=== PATIENT | female | born 1995 | race Caucasian/White ===

== ENCOUNTER 2019-03-28 14:50 | Outpatient (CLI) | payer OTHER ==
[2019-03-28 15:11] VITALS: BP 124/81
[2019-03-28] MEDS ORDERED: ACETAMINOPHEN 500 MG TABLET PO SCH (15:30)
[2019-03-28] MEDS ORDERED: diphenhydrAMINE 25 MG CAPSULE PO SCH (16:00)
[2019-03-28] MEDS ORDERED: PROMETHAZINE 25 MG TABLET PO SCH (16:00)
--- NOTE | 2019-03-28 17:07 | PROVIDER PROGRESS NOTE ---
- HPI Chief Complaint: Headache (23 yo at 38+0 wga presents for headache. Started approximately 2h prior to presentation. Associated with mild lightheadedness but no visual change. Has not tried any medications for h/a. Some nausea, no emesis. No unusual food intake, feels she is staying hydrated. Denies CP/SOB, RUQ/epigastric pain. Denies ctx, VB, LOF. Reports FM. No other acute concerns. Pt was rec'g care at [facility]; with inpatient closure requested referral to [facility], but last week changed mind and requested referral to [facility]. Has not yet had intake appt in their clinic.) Current : Current EDU 04/11/19 Gestation 38 Weeks and 0 Days 3 Para 1 Vital Signs Temperature 97.5 F L 03/28/19 15:08 Heart Rate 93 03/28/19 15:08 Respiratory Rate 16 03/28/19 15:08 Blood Pressure 124/81 H 03/28/19 15:08 Temperature 97.5 F L 03/28/19 15:08 Heart Rate 93 03/28/19 15:08 Respiratory Rate 16 03/28/19 15:08 Blood Pressure 124/81 H 03/28/19 15:08 O2 Saturation - Exam VS wnl Gen: alert, NAD CV: S1 and S2 wnl, no EHS Resp: AE clear to bases BL Neuro: CN II-XII symmetric and intact Abdo: soft, nontender Uterus: gravid, nontender - Procedures OB Procedure Performed: NST Diagnosis/Indication for NST: Other (headache) NST Procedure: NST Procedure Start Date 03/28/19 Start Time 15:05 Stop Time 15:37 Vibroacoustic Stimulation Used No Patient States Movement Yes Service Date of procedure: 03/28/19 Procedure Details: 130, mod variability, pos accels, no decels. Irregular ctx, pt not feeling. - Plan Plan: 23 yo at 38+0 wga presents to [facility] triage for h/a. VS wnl, exam benign. wellbeing demonstrated with reactive NST. Mild improvement in h/a with tylenol, then relief of headache with benadryl and phenergan. Discussed signs/symptoms of labor or pre-clampsia, reasons to return. Also discussed importance of establishing care with [facility]; will confirm records received by their clinic on Saturday so that pt can make appt there. Pt expressed understanding.
== END 2019-03-28 17:26 | disposition home or self-care (01) ==
LOC: WFO 14:50 → FBP 14:54 → WFO 17:26
PROVIDERS: ATTEND Obstetrics & Gynecology
DX: O26.893 Other specified pregnancy related conditions, third trimester (principal); R51 Headache; R42 Dizziness and giddiness; Z3A.38 38 weeks gestation of pregnancy
CPT/HCPCS: 59025; 99213; A9270; Q0169

== ENCOUNTER 2019-04-13 21:45 | Inpatient (IN) | payer OTHER ==
[2019-04-13] MEDS ORDERED: SODIUM CHLORIDE FLUSH 0.9% 10 ML SYRINGE ONE ×2 (22:09→23:06)
[2019-04-13] MEDS ORDERED: OXYTOCIN/DEXTROSE 5 % 30 UNIT/500 ML BAG IV ONE ×2 (22:09→23:00)
[2019-04-13] MEDS ORDERED: LACTATED RINGERS 1,000 ML IV ONE (22:09)
[2019-04-13] MEDS ORDERED: SODIUM CHLORIDE FLUSH 0.9% 10 ML SYRINGE IVP PRN (22:10)
[2019-04-13 22:33] LABS: BASOPHILS # (AUTO) 0.1 10^3/uL (0.0-0.1); BASOPHILS % (AUTO) 0.6 %; EOSINOPHILS # (AUTO) 0.1 10^3/uL (0.0-0.7); EOSINOPHILS % (AUTO) 0.7 %; HGB - HEMOGLOBIN 10.1 g/dL (12.0-16.0); LYMPHOCYTES # (AUTO) 2.9 10^3/uL (1.5-3.5); LYMPHOCYTES % (AUTO) 33.4 %; MEAN CORPUSCULAR HEMOGLOBIN 24.1 pg (27.0-31.0); MEAN CORPUSCULAR HGB CONC 31.4 g/dL (32.0-36.0); MEAN CORPUSCULAR VOLUME 76.8 fL (81.0-99.0); MEAN PLATELET VOLUME 10.8 fL (7.9-10.8); MONOCYTES # (AUTO) 0.7 10^3/uL (0.0-1.0); MONOCYTES % (AUTO) 7.8 %; NEUTROPHILS % (AUTO) 57.2 %; PLT - PLATELET COUNT 297 10^3/uL (130-450); RED BLOOD COUNT 4.19 10^6/uL (4.20-5.40); RED CELL DISTRIBUTION WIDTH 17.1 % (12.0-15.0); WHITE BLOOD COUNT 8.7 x10^3/uL (4.8-10.8)
[2019-04-13] MEDS ORDERED: LACTATED RINGERS 1,000 ML IV SCH (23:00)
--- NOTE | 2019-04-13 23:53 | PROVIDER PROGRESS NOTE ---
Labor Progress Note - Uterine Monitoring Contraction Frequency (min/apart): 2 Contraction Intensity: positive: Strong Uterine Resting Tone: positive: Soft - Monitoring Monitor Mode: positive: External ultrasound Heart Rate Variability: positive: Moderate (6-25 bmp) Decelerations: positive: Early, Intermittent (<50% x20 min) Strip Review: positive: Category I - Vaginal Exam Dilation (in cm): 8 Effacement (%): 100 Station: 0 Cervical Position: Anterior - Labor Progress Note Labor Progress Note/Additional Text: AROM clear fluid. Using Nitrous for pain control. Progressing feeling more pelvic pressure.
[2019-04-14] MEDS ORDERED: LIDOCAINE-MPF 1% 30 ML VIAL ONE ×2 (00:17→05:12)
[2019-04-14] MEDS ORDERED: OXYTOCIN/DEXTROSE 5 % 30 UNIT/500 ML BAG IV PRN (00:23)
[2019-04-14] MEDS ORDERED: ACETAMINOPHEN 325 MG TABLET PO PRN (00:48)
[2019-04-14] MEDS ORDERED: diphenhydrAMINE 25 MG CAPSULE PO PRN (00:48)
[2019-04-14] MEDS ORDERED: HYDROCORTISONE 1% CREAM 28 GM TUBE PR PRN (00:48)
[2019-04-14] MEDS ORDERED: WITCH HAZEL/GLYCERIN 1 PAD TOP PRN (00:48)
[2019-04-14] MEDS ORDERED: ONDANSETRON 4 MG/2 ML VIAL IVP PRN (00:48)
--- NOTE | 2019-04-14 00:55 | DELIVERY NOTE ---
Delivery Note - Labor Labor: positive: Spontaneous - Delivery Method Delivery Method: positive: Spontaneous vaginal delivery - Presentation Presentation: positive: Vertex, ALEXANDR - left occiput anterior, Other (compound right hand) - Nuchal Cord Nuchal Cord: positive: Present (times 1) - Anesthetic Anesthetic Type: Anesthetic: positive: Lidocaine - 1% plain Volume: positive: Other (30) - Episiotomy Type Episiotomy Type: positive: None - Laceration Laceration: positive: 2nd degree - Suture Suture Type: positive: Vicryl Suture Size: positive: 3-0 - Delivery Outcome Delivery Outcome: positive: Livebirth - Rand: positive: Placed in direct skin contact with mother, Bulb syringe, St imulated, Warmed, [place] used sex: positive: Male - Cord Cord: positive: 3 vessels - Placenta Placenta: positive: Intact - Estimated Blood Loss Estimated Blood Loss (in cc): 250 - Post Delivery Events Post Delivery Events: positive: No post delivery events - Delivery Comments (Free Text/Narrative) Delivery Comments (Free Text/Narrative): Pt had onset of spontaneous labor. Presented at 8 cm. Pt last delivery had problems with the epidural and needed a blood patch. for this reason she declined an epidural and requested Nitrous. SROM with clear fluid at 2342. re ached complete at 0000.Excellent pushing and Delivered at 0015. ALEXANDR with compound Hand and nucal cord X 1. Placenta followed complete at 0023. Second degree laceration closed with 3-0 vicril and lidocane. Apgars 8/9. EBL 250.
[2019-04-14] MEDS ORDERED: LACTATED RINGERS 1,000 ML IV SCH (01:00)
[2019-04-14] MEDS ORDERED: SODIUM CHLORIDE FLUSH 0.9% 10 ML SYRINGE IVP SCH (01:00)
[2019-04-14] MEDS: IBUPROFEN 800 MG TABLET PO SCH ×2 (02:25→07:57)
[2019-04-14] MEDS ORDERED: BUFFERED LIDOCAINE 10 ML SYRINGE IU ONE (02:40)
[2019-04-14] MEDS: ACETAMINOPHEN 325 MG TABLET PO PRN ×5 (02:45→21:35)
--- NOTE | 2019-04-14 02:53 | PREOP HISTORY & PHYSICAL ---
DATE OF SERVICE: 04/13/2019 Physician: Haile Padilla MD IDENTIFICATION: The patient is a 23-year-old. She is a G3, P1, AB1 female. Her EDC is 04/11/2019, that is by LMP confirmed with ultrasound at 11 as well as again at 28 weeks. She is currently 40 we eks 3 days. CHIEF COMPLAINT: Strong contractions. HISTORY OF PRESENT ILLNESS: The patient developed strong contractions this evening. She denies spon taneous rupture of membranes. She has started her OB care at the [facility] roughly at 8 weeks, a ll the way to 37 weeks, at which time she was transferred to our clinic. She was first seen at 38-6/ 7 weeks. Her laboratories show her to be A positive, she is rubella immune. Her serology, hepatitis B, chlamydia and GC as well as HIV were all negative. She has had a GBS, which is noted to be negat mildred. Her 50 gram Glucola was 118. PAST MEDICAL HABITS: The patient denies any hypertensive, diabetic or cardiac disease. PAST SURGICAL HISTORY: Negative. ALLERGIES: NONE KNOWN. CURRENT MEDICATIONS: Vitamins as well as Zantac for heartburn. HABITS: The patient denies use of alcohol, tobacco or street or addictive drugs. SOCIAL HISTORY: The patient is to her , who is active duty [place]. She lives with her spouse and child. REVIEW OF SYSTEMS: Negative with the exception of heartburn. PHYSICAL EXAMINATION GENERAL: The patient is a well-developed, well-nourished white female. She is in no acute distress at this time. VITAL SIGNS: Stable. HEENT: Pupils are equal, round. Extraocular muscles are intact. Mouth is clear. Thyroid is not pa lpably enlarged. HEART: Regular rate and rhythm without murmurs. LUNGS: Lung schaefer are clear without rales or wheezes. ABDOMEN: Gravid. She is showing regular contractions on the monitor, about every 2 minutes. Baseli ne heart rate is 140s with good variability and not seen any accelerations at this time. PELVIC: Done by the nurse shows her to be 8 cm, 100% effaced, and 0 to -1 vertex presentation. IMPRESSION: A 23-year-old G3, P1 female who is at term in active labor. PLAN: We will give the patient some nitrous for pain control. She has a history of having a bad exp erience with her last epidural. We will try to manage her analgesia until she reaches complete. Con surg tech rupturing her membranes. This will probably accelerate her course. TD: 04/13/2019 22:44
[2019-04-14] MEDS ORDERED: SIMETHICONE CHEW 80 MG TABLET PO SCH (06:00)
[2019-04-14] MEDS: DOCUSATE SODIUM 100 MG CAPSULE PO SCH ×2 (08:00→20:00)
--- NOTE | 2019-04-14 10:08 | PROVIDER PROGRESS NOTE ---
Subjective - Subjective Subjective: S: feeling well. Eating, ambulating, urinating, without problems. Cramping worse this time than last time. No increasing pain in abd or vulva. Mood OK. O: AVSS Alert, smiling, NAD Abd soft, nt/nd Fundus firm, nontender, 2cm below umbilicus LE without erythema, edema, or cord Starting Hct 31, EBL: 250cc. Objective - Vital Signs/Intake & Output Vital Signs: Vital Signs x48h Temp Pulse Resp BP Pulse Ox 04/14/19 07:30 98.6 F 75 16 111/63 100 04/14/19 06:00 98.4 F 78 16 104/57 L 04/14/19 02:15 79 16 119/85 H Intake & Output: Intake & Output 04/11/19 04/12/19 04/13/19 04/14/19 23:59 23:59 23:59 23:59 Intake Total 1360 Output Total 1700 Balance -340 - Lab Results Fish Bones: 04/13/19 22:31 Other Labs: Lab Results x24hrs 04/13/19 Range/Units 22:31 WBC 8.7 (4.8-10.8) x10^3/uL RBC 4.19 L (4.20-5.40) 10^6/uL Hgb 10.1 L (12.0-16.0) g/dL Hct 32.2 L (37.0-47.0) % MCV 76.8 L (81.0-99.0) fL MCH 24.1 L (27.0-31.0) pg MCHC 31.4 L (32.0-36.0) g/dL RDW 17.1 H (12.0-15.0) % Plt Count 297 (130-450) 10^3/uL MPV 10.8 (7.9-10.8) fL Neut # (Auto) 5.0 (1.5-6.6) 10^3/uL Lymph # (Auto) 2.9 (1.5-3.5) 10^3/uL [place] # (Auto) 0.7 (0.0-1.0) 10^3/uL Eos # (Auto) 0.1 (0.0-0.7) 10^3/uL Baso # (Auto) 0.1 (0.0-0.1) 10^3/uL Absolute Nucleated RBC 0.00 x10^3/uL Nucleated RBC % 0.0 /100WBC Assessment/Plan - Problem List (1) Vaginal delivery Impression: Healthy 23yo P2 10h s/p at term. Doing very well overall --Cramping pain, will switch to toradol for 2 doses to see if that helps --Rh +, RI, s/p tdap and flu vax. --Anticipate discharge tomorrow.
[2019-04-14] MEDS: oxyCODONE 5 MG TABLET PO PRN ×3 (11:55→20:01)
[2019-04-14] MEDS: KETOROLAC 30 MG/ML VIAL IVP SCH ×2 (14:05→20:00)
[2019-04-15] MEDS: IBUPROFEN 800 MG TABLET PO SCH (02:00)
[2019-04-15] MEDS: ACETAMINOPHEN 325 MG TABLET PO PRN ×2 (02:14→06:47)
--- NOTE | 2019-04-15 07:51 | Discharge Plan ---
Discharge Plan Problem Reviewed?: Yes Disposition: Home, Self Care Condition: Good Diet: Regular Activity Restrictions: No Restrictions Shower Restrictions: No Driving Restrictions: No No Smoking: If you smoke, Please STOP! Call for help. Follow-up with: THERESA AHMADI MD [Provider Admit Priv/Credential] - 6 Weeks
[2019-04-15 11:55] VITALS: BP 121/67
--- NOTE | 2019-04-15 12:38 | Labor Flowsheet ---
Labor Flowsheet Datetime Report Generated by CPN: 04/15/2019 12:38 Datetime: 04/15/2019 04:44 VITAL SIGNS NBP Sys/Allison/Mean (mmHg): 129 : 72 : 85 Pulse: 73 LaborFlag: Labor Datetime: 04/14/2019 10:54 SpO2 (%): 100 Datetime: 04/14/2019 00:32 Membranes Ruptured Date/Time: 04/13/2019 22:30 Datetime: 04/14/2019 00:10 STAGE 2 Pushing: Urge to Push Pushing Position: Pushing with Contractions; Pushing Lithotomy Pushing Progress: Descent with Pushing Datetime: 04/14/2019 00:05 UTERINE ACTIVITY Monitor Mode: External Frequency (min): 1-2 Quality: Strong Duration (sec): 60 Resting Tone (Palpate): Relaxed ASSESSMENT A Monitor Mode: External US FHR Baseline Rate : 130 Variability: Minimal - Undetectable to <=5 bpm Accelerations: None Decelerations: Variable Category: Category II Datetime: 04/14/2019 00:00 Stage of : Labor Monitor Interventions for UA: [place] Adjusted Comments: Variables x2 noted with ctx, dropping to 70, 90. SVE, Pt complete and will begin pushing soon PAIN Pain Scale: 8 Pain Presence: Intermittent Pain Type: Cramping Pain Location: Abdomen Pain Relief Measures: Comfort Measures Pain Coping: Declines Medication or Epidural Pain Assessment Comments: Pt using nitrous oxide for pain control. Doing well Comfort Measures: Breathing/Relaxation; Family Support Provider Reviewed Strip: Yes Strip Reviewed by: COMMUNICATION Communication: Provider at Bedside Notification Reason: Labor Status Datetime: 04/13/2019 23:45 I/O Interventions: Ice Chips Given Patient Care Comments: Pt prepared for delivery. Dr. Padilla in hospital Datetime: 04/13/2019 23:42 VAGINAL EXAM Dilatation (cm): 8.0 Effacement (%): 100 Station: 0 Exam by: Dr. Padilla Membrane Status: Ruptured Membranes Rupture Method: Artificial Amniotic Fluid Color: Clear Amniotic Fluid Amount: Large Amniotic Fluid Odor: Normal Vaginal Bleeding: Normal Show Cervix, Consistency: Soft Cervix, Position: Anterior Vaginal Exam Comments: AROM Datetime: 04/13/2019 23:30 Pattern: Normal: <= 5 Contractions in 10 Minutes FHR Baseline Changes: No Baseline Change PATIENT CARE Oxygen Method: Room Air Datetime: 04/13/2019 23:09 TEACHING Instructional Method: Verbal Plan of Care: Plan of Care Discussed Pain Management: Pain Scale/Goals Teaching Comments: Pt and family instructed on use of nitrous.
--- NOTE | 2019-05-10 18:13 | DISCHARGE SUMMARY ---
Physician: Nancy Sheldon MD DATE OF ADMISSION: 04/13/2019 DATE OF DISCHARGE: 04/15/2019 ADMITTING DIAGNOSES 1. Intrauterine at 40 weeks 3 days. 2. Active labor. DISCHARGE DIAGNOSIS: Status post spontaneous vaginal delivery at term. OPERATIONS AND PROCEDURES: 04/14/2019, spontaneous vaginal delivery of a live born male. This was u ncomplicated with an estimated blood loss of 250 mL. HOSPITAL COURSE: The patient was admitted in active labor and delivered without complications. By p ostpartum day 2, she was requesting discharge home. She was eating, ambulating, and urinating withou t difficulties. Her mood was good. Her pain was not significant, nor with her vaginal bleeding. DISCHARGE EXAM VITAL SIGNS: She was afebrile with normal vital signs. GENERAL: She was alert and smiling, in no apparent distress. ABDOMEN: Soft, nontender, nondistended. Fundus firm, nontender, and 1 cm below the umbilicus. EXTREMITIES: There was no lower extremity edema. DISCHARGE DISPOSITION: Home. CONDITION: Good. FOLLOWUP: in [address] Padilla. Precautions and routine precautions given. TD: 05/10/2019 15:55
== END 2019-04-15 11:20 | disposition home or self-care (01) | DRG 807 ==
LOC: WFO 21:45 → FBP 21:46 → WFO 22:09 → FBP 22:10
PROVIDERS: ADMIT Obstetrics & Gynecology; ATTEND Obstetrics & Gynecology
PROC: 10907ZC Drainage of Amniotic Fluid, Therapeutic from Products of Conception, Via Natural or Artificial Opening (ICD-10-PCS; 2019-04-13)
PROC: 10E0XZZ Delivery of Products of Conception, External Approach (ICD-10-PCS; principal; 2019-04-14)
PROC: 0KQM0ZZ Repair Perineum Muscle, Open Approach (ICD-10-PCS; 2019-04-14)
DX: O32.6XX0 Maternal care for compound presentation, not applicable or unspecified (principal); Z37.0 Single live birth; Z3A.40 40 weeks gestation of pregnancy; O69.81X0 Labor and delivery complicated by cord around neck, without compression, not applicable or unspecified; O70.1 Second degree perineal laceration during delivery
CPT/HCPCS: 36415; 85025; A9270; J7120

== ENCOUNTER 2020-06-11 08:43 | Emergency (ER) | payer OTHER ==
[2020-06-11 08:55] VITALS: BP 122/73
[2020-06-11] MEDS ORDERED: CHERRY SYRUP 10 ML UDC PO ONE (09:20)
[2020-06-11] MEDS ORDERED: DEXAMETHASONE 10 MG/ML VIAL PO STA (09:20)
--- NOTE | 2020-06-11 09:23 | ED Physician Documentation ---
PD HPI HEENT - Stated complaint Stated Complaint: RT EAR PX, SORE THROAT - Chief complaint Chief Complaint: Heent - History obtained from History obtained from: Patient - History of Present Illness Timing - onset: How many days ago (3) Timing - duration: Days (3) Timing - details: Gradual onset, Still present Location: Right ear, Throat Worsens: [place] Associated symptoms: Congestion, Rhinorrhea. No: Fever Similar symptoms before: Has not had sx before Recently seen: Not recently seen - Additional information Additional information: Previously well 24-year-old female with ports that she has had some congestion a sore throat when she swallows and pain in her right ear she states the pain in her right ear is worse when she swallows and she has a sensation of some muffled hearing in that site and she feels that her ear is plugged she cannot get it to pop like she does her other ear. She has not had a cough but she feels that she will develop when shortly. She has not had fever. Review of Systems Constitutional: denies: Fever Eyes: denies: Decreased vision Ears: reports: Loss of hearing, Ear pain Nose: reports: Congestion Throat: reports: Sore throat Cardiac: denies: Chest pain / pressure, Palpitations Respiratory: denies: Dyspnea, Cough GI: denies: Abdominal Pain, Nausea, Vomiting : denies: Dysuria PD PAST MEDICAL HISTORY - Past Medical History Past Medical History: No - Past Surgical History Past Surgical History: No - Present Medications Home Medications: Ambulatory Orders Medication Instructions Recorded Confirmed No Known Home Medications 06/11/20 06/11/20 - Allergies Allergies/Adverse Reactions: Allergies Allergy/AdvReac Type Severity Reaction Status Date / Time No Known Drug Allergies Allergy Verified 06/11/20 08:55 - Social History Does the pt smoke?: No Smoking Status: Never smoker Does the pt drink ETOH?: No Does the pt have substance abuse?: No - POLST Patient has POLST: No PD ED PE NORMAL - Vitals Vital signs reviewed: Yes (normal ) - General General: Alert and oriented X 3, No acute distress, Well developed/nourished - HEENT HEENT: Atraumatic, PERRL, EOMI, Other (both TM's are retracted but without inflamation noted. Pharynx is with 2+ tonsils without exudate + crypts. There is mild inflamation to the right tonsillar pillar. ) - Neck Neck: Supple, no meningeal sign, No bony TTP, No adenopathy - Cardiac Cardiac: RRR, No murmur - Respiratory Respiratory: No respiratory distress, Clear bilaterally - Abdomen Abdomen: Normal bowel sounds, Soft, No organomegaly - Back Back: No CVA TTP, No spinal TTP - Derm Derm: Normal color, Warm and dry, No rash - Extremities Extremities: No deformity, No edema - Neuro Neuro: Alert and oriented X 3, jumpbasting facing baster 2-12 intact, No motor deficit, No sensory deficit, Normal speech Eye Opening: Spontaneous Motor: Obeys Commands Verbal: Oriented GCS Score: 15 - Psych Psych: Normal mood, Normal affect Results - Vitals Vitals: Vital Signs - 24 hr 06/11/20 08:54 Temperature 35.9 C L Heart Rate 68 Respiratory 18 Rate Blood Pressure 122/73 O2 Saturation 99 Oxygen O2 Source Room air - Labs Labs: Laboratory Tests 06/11/20 09:24 Group A Strep Rapid Negative PD MEDICAL DECISION MAKING - ED course Complexity details: reviewed results, re-evaluated patient, considered differential, d/w patient ED course: 24 y/o female with right ear pain has retracted ear drum and mild inflammation to the right tonsillar pillar. This is consistent with eustation tube dysfunction and she is administered a dose of dexamethasone. Departure - Departure Disposition: 01 Home, Self Care Clinical Impression: Eustachian tube dysfunction Qualifiers: Laterality: right Qualified Code(s): H69.81 - Other specified disorders of Eustachian tube, right ear Condition: Stable Instructions: ED Otitis Media Serous Adult Follow-Up: JORGE LUIS Roa [Provider Group] Discharge Date/Time: 06/11/20 10:03
[2020-06-11 09:37] LABS: RAPID STREP SCREEN Negative (Negative)
== END 2020-06-11 10:03 | disposition home or self-care (01) ==
LOC: ED 08:43
DX: H69.81 Other specified disorders of Eustachian tube, right ear (principal)
CPT/HCPCS: 87070; 87430; 99283; 99284; A9270

== ENCOUNTER 2020-07-19 16:25 | Emergency (ER) | payer OTHER ==
[2020-07-19] MEDS ORDERED: SUMAtriptan 6 MG/0.5 ML VIAL SUBQ STA (16:49)
--- NOTE | 2020-07-19 16:50 | ED Physician Documentation ---
PD HPI HEADACHE - Stated complaint Stated Complaint: VISION CHANGES/COYNE - Chief complaint Chief Complaint: Neuro - History obtained from History obtained from: Patient - Additional information Additional information: About an hour ago she developed vision especially in the periphery of both eyes which she describes as pixelated. When I prompt her she says it also looks like she is looking through broken glass. About 15 minutes later developed a severe gradual onset bitemporal headache with light sensitivity and nausea. Review of Systems Constitutional: denies: Fever, Chills Eyes: reports: Decreased vision, Photophobia GI: reports: Nausea PD PAST MEDICAL HISTORY - Past Surgical History Past Surgical History: No - Present Medications Home Medications: Ambulatory Orders Medication Instructions Recorded Confirmed Ondansetron Odt [Zofran] 4 mg TL Q6H PRN #10 tablet 07/19/20 SUMAtriptan [Imitrex] 25 mg PO BID PRN #10 tablet 07/19/20 - Allergies Allergies/Adverse Reactions: Allergies Allergy/AdvReac Type Severity Reaction Status Date / Time No Known Drug Allergies Allergy Verified 07/19/20 16:34 - Social History Does the pt smoke?: No Smoking Status: Never smoker Does the pt drink ETOH?: No Does the pt have substance abuse?: No - POLST Patient has POLST: No PD ED PE NORMAL - Vitals Vital signs reviewed: Yes - General General: Alert and oriented X 3, Other (Appears uncomfortable and photophobic) - HEENT HEENT: PERRL, EOMI - Neck Neck: Supple, no meningeal sign, No bony TTP - Neuro Neuro: Alert and oriented X 3, harmonica maker 2-12 intact, No motor deficit, No sensory deficit, Normal speech Results - Vitals Vitals: Vital Signs - 24 hr 07/19/20 07/19/20 07/19/20 16:34 16:56 17:39 Temperature 36.9 C 37 C Heart Rate 66 65 72 Respiratory 18 18 16 Rate Blood Pressure 125/76 127/80 125/75 O2 Saturation 99 99 100 Oxygen O2 Source Room air PD MEDICAL DECISION MAKING - ED course ED course: 24-year-old woman with an acute headache, the visual scotomata are very typical for migraine headache was relieved with a shot of Imitrex but she still had persistent nausea and then developed back pain which was better after some Flexeril and Zofran. Departure - Departure Disposition: 01 Home, Self Care Clinical Impression: Migraine Qualifiers: Migraine type: with aura Status migrainosus presence: with status migrainosus Intractability: not intractable Qualified Code(s): G43.101 - Migraine with aura, not intractable, with status migrainosus Condition: Good Record reviewed to determine appropriate education?: Yes Instructions: ED Headache Migraine, Imitrex Prescriptions: SUMAtriptan [Imitrex] 25 mg PO BID PRN #10 tablet PRN Reason: Headache Ondansetron Odt [Zofran] 4 mg TL Q6H PRN #10 tablet PRN Reason: Nausea / Vomiting Comments: Call your doctor to arrange a follow-up appointment, make the next available appointment. In the interim, return anytime if worse or if new symptoms develop.
[2020-07-19] MEDS ORDERED: CYCLOBENZAPRINE 10 MG TABLET PO STA (17:30)
[2020-07-19] MEDS ORDERED: ONDANSETRON ODT 4 MG TABLET TL STA (17:30)
[2020-07-19 18:57] VITALS: BP 122/81
== END 2020-07-19 18:57 | disposition home or self-care (01) ==
LOC: ED 16:25
DX: G43.101 Migraine with aura, not intractable, with status migrainosus (principal); R11.0 Nausea
CPT/HCPCS: 96372; 99283; A9270; Q0162

== ENCOUNTER 2021-05-29 15:31 | Outpatient (CLI) | payer OTHER ==
--- NOTE | 2021-05-29 17:21 | XRAY Report ---
PROCEDURE: Foot 3 View LT INDICATIONS: LT FOOT PAIN TECHNIQUE: 5 views of the foot were acquired. COMPARISON: None. FINDINGS: Bones: No fractures or dislocations. No suspicious bony lesions. Soft tissues: No tibiotalar joint effusion. Achilles tendon appears normal. IMPRESSION: 1. No fracture or dislocation. Reviewed by: Homer Brandon MD on 05/29/2021 5:20 PM [facility] [place] Approved by: Homer Brandon MD on 05/29/2021 5:20 PM [facility] [place] Station ID: [id number]
== END 2021-05-29 15:32 | disposition home or self-care (01) ==
LOC: DI 15:31
PROVIDERS: ATTEND Podiatrist
DX: M79.672 Pain in left foot (principal)

== ENCOUNTER 2021-09-20 08:11 | Outpatient (CLI) | payer OTHER | END 2021-09-20 08:12 | disposition home or self-care (01) | LOC: LAB 08:11 | PROVIDERS: ATTEND Surgery | DX: Z01.812 Encounter for preprocedural laboratory examination (principal); D17.1 Benign lipomatous neoplasm of skin and subcutaneous tissue of trunk; Z20.822 Contact with and (suspected) exposure to COVID-19 ==

== ENCOUNTER 2021-09-21 11:27 | Day surgery (SDC) | payer OTHER ==
[2021-09-21] MEDS ORDERED: LACTATED RINGERS 1,000 ML IV ONE (11:29)
[2021-09-21 11:47] LABS: HCG UR QUAL NEGATIVE
[2021-09-21] MEDS ORDERED: BUPIVACAINE 0.25% PF 10 ML VIAL ONE (11:59)
[2021-09-21] MEDS ORDERED: KETOROLAC 30 MG/ML VIAL ONE (12:08)
[2021-09-21] MEDS ORDERED: ONDANSETRON 4 MG/2 ML VIAL ONE (12:08)
[2021-09-21] MEDS ORDERED: DEXAMETHASONE 4 MG/ML VIAL ONE (12:08)
[2021-09-21] MEDS ORDERED: MIDAZOLAM 2 MG/2 ML VIAL ONE (12:08)
[2021-09-21] MEDS ORDERED: fentaNYL 100 MCG/2 ML VIAL ONE (12:08)
[2021-09-21] MEDS ORDERED: LIDOCAINE-MPF 2% 5 ML VIAL ONE (12:08)
[2021-09-21] MEDS ORDERED: PROPOFOL 200 MG/20 ML VIAL IVP ONE (12:08)
--- NOTE | 2021-09-21 12:17 | ANESTHESIA ---
Pre-Anesthesia VS, & Labs - Diagnosis lipoma, right chest wall - Procedure excision right chest wall lipoma Vital Signs: Temp Pulse Resp BP Pulse Ox 36 C L 101 H 16 114/89 H 96 09/21/21 11:38 09/21/21 11:38 09/21/21 11:38 09/21/21 11:38 09/21/21 11:38 Height: 5 ft 2 in Weight (kg): 87 kg Body Mass Index: 35.0 BMI Classification: Obese - NPO >8 hours - Is Patient ?: No - Lab Results Lab results reviewed: Yes Home Medications and Allergies Home Medications: Ambulatory Orders No Known Home Medications 09/11/21 No Known Home Medications 09/11/21 Allergies/Adverse Reactions: Allergies Allergy/AdvReac Type Severity Reaction Status Date / Time No Known Drug Allergies Allergy Verified 09/20/21 13:15 Anes History & Medical History - Anesthetic History Anesthesia Complications: reports: No previous complications Family history of Anesthesia Complications: Denies Family history of Malignant Hyperthermia: Denies - Medical History Cardiovascular: reports: None Pulmonary: reports: None Gastrointestinal: reports: None Urinary: reports: None Neuro: reports: Headaches Musculoskeletal: reports: None Endocrine/Autoimmune: reports: None Blood Disorders: reports: None Skin: reports: Eczema Smoking Status: Never smoker Exam General: Alert, Oriented x3, Cooperative, No acute distress Dental: WNL Mouth Openin Fingerbreadth Neck Mobility: Normal Mallampati classification: II Plan Anesthesia Type: General Consent for Procedure(s) Verified and Reviewed: Yes Code Status: Attempt Resuscitation ASA classification: 1-Healthy patient Is this case an emergency?: No
--- NOTE | 2021-09-21 13:11 | HISTORY & PHYSICAL EXAMINATION ---
Chief Complaint - Chief Complaint Chief Complaint: lump right side of chest History of Present Illness - History Obtained From Records Reviewed: yes History obtained from: pt Exam Limitations: none - History of Present Illness HPI Comment/Other: growing and now painful lipoma right chest wall History - Past Medical History Cardiovascular: reports: None Respiratory: reports: None Neuro: reports: Headaches Endocrine/Autoimmune: reports: None GI: reports: None HAND EDGER: reports: None : reports: None HEENT: reports: None Psych: reports: Depression, Post traumatic stress disorder Musculoskeletal: reports: None Derm: reports: Eczema MRSA Hx?: No - POLST Patient has POLST: No Meds/Allgy - Home Medications Home Medications: Ambulatory Orders Medication Instructions Recorded Confirmed No Known Home Medications 09/11/21 09/20/21 - Allergies Allergies/Adverse Reactions: Allergies Allergy/AdvReac Type Severity Reaction Status Date / Time No Known Drug Allergies Allergy Verified 09/20/21 13:15 Review of Systems - Other Findings Other Findings: 10 pt ros as above otherwise unremarkable Exam - Vital Signs Reviewed Vital Signs: Yes Vital Signs: Vital Signs x48h Temp Pulse Resp BP Pulse Ox 09/21/21 11:38 36 C L 101 H 16 114/89 H 96 - Physical Exam General Appearance: positive: No acute distress, Alert Eyes Bilateral: positive: PERRL, EOMI ENT: positive: No signs of dehydration Neck: positive: No JVD, Trachea midline Respiratory: positive: No respiratory distress, Breath sounds nml Cardiovascular: positive: Regular rate & rhythm Abdomen: positive: Non-tender, No distention Skin: positive: Other (3 x 8 cm right chest wall lipoma) Neurologic/Psychiatric: positive: Oriented x3 Conclusion/Plan - Problem List (1) Lipoma of chest wall Conclusion/Plan: plan excision. parq held and consent obtained - Lab Results Lab results reviewed: Yes
[2021-09-21] MEDS ORDERED: BUPIVACAINE 0.25% PF 10 ML VIAL SUBQ ONE (13:50)
[2021-09-21] MEDS ORDERED: ONDANSETRON 4 MG/2 ML VIAL IVP PRN ×2 (13:58→13:59)
[2021-09-21] MEDS ORDERED: HYDROmorphone 0.5 MG/0.5 ML SYRINGE IVP PRN (13:58)
[2021-09-21] MEDS ORDERED: METOCLOPRAMIDE 10 MG/2 ML VIAL IVP PRN (13:58)
[2021-09-21] MEDS ORDERED: NALOXONE 0.4 MG/ML VIAL IVP PRN (13:58)
[2021-09-21] MEDS ORDERED: MORPHINE 2 MG/ML CARPUJECT IVP PRN (13:58)
[2021-09-21] MEDS ORDERED: ATROPINE ABBOJECT 1 MG/10 ML SYRINGE IVP PRN (13:58)
[2021-09-21] MEDS ORDERED: fentaNYL 100 MCG/2 ML VIAL IVP PRN (13:58)
[2021-09-21] MEDS ORDERED: ePHEDrine 50 MG/ML VIAL IVP PRN (13:58)
[2021-09-21] MEDS ORDERED: HYDROcod/ACETAM 5/325 MG TABLET PO PRN (13:59)
[2021-09-21] MEDS ORDERED: LACTATED RINGERS 500 ML IV ONE ×2 (13:59→14:08)
[2021-09-21] MEDS ORDERED: LACTATED RINGERS 1,000 ML IV SCH (14:00)
--- NOTE | 2021-09-21 14:18 | OPERATIVE REPORT ---
Operative Report - General Procedure Date: 09/21/21 Planned Procedure: excision 3 x 8 cm right chest wall lipoma Pre-Op Diagnosis: chest wall lipoma Procedure Performed: excision 3 x 8 cm right chest wall lipoma 4.5 cm intermediate repair Post Op Diagnosis: same - Procedure Note Primary Surgeon: jerrod lala Anesthesia Technique: General LMA, Local Pathology: benign not sent Estimated Blood Loss (mL): 1 Drain/Tube Type: Other (none) Indications: growing and painful chest wall lipoma Findings: as above/ subcutaneous Complications: none - Other Other Information/Narrative: The patient was properly identified brought to the operating room and placed in supine position. Laryngeal mask anesthesia was induced. She was carefully repositioned in the left lateral decubitus. She was prepped and draped in a sterile fashion. Antibiotics were not given. Local anesthetic was given. A 4.5 cm incision was made in Juma's lines directly over the palpable mass. Dissection proceeded with cutting current. The mass was subcutaneous. It was removed in its entirety with gentle retraction and cutting current cautery. Hemostasis was assured. Intermediate repair was performed. Deep subcutaneous tissue was closed with interrupted 2-0 Vicryl suture. Buried interrupted subdermal 3-0 Vicryl sutures were then placed. Skin was closed with a running 4-0 Monocryl subcuticular suture. Steri-Strips and dressing were applied. She tolerated the procedure well was awakened and brought to recovery in good condition.
[2021-09-21 14:53] VITALS: BP 120/70
--- NOTE | 2021-09-21 15:39 | ANESTHESIA POST OP EVALUATION ---
Anesthesia Post Eval - Post Anesthesia Eval Vitals: Last Vital Signs Temp 36.4 C L 09/21/21 14:51 Pulse 74 09/21/21 14:51 Resp 16 09/21/21 14:51 BP 120/70 09/21/21 14:51 Pulse Ox 100 09/21/21 14:51 CV Function Including HR & BP: Stable Pain Control: Satisfactory Nausea & Vomiting: Negative Mental Status: Baseline Respiratory Status: Airway Patent Hydration Status: Satisfactory Anesthesia Complications: None
== END 2021-09-21 11:28 | disposition home or self-care (01) ==
LOC: SDS 11:27
PROVIDERS: ATTEND Surgery
PROC: 0JB60ZZ Excision of Chest Subcutaneous Tissue and Fascia, Open Approach (ICD-10-PCS; principal; 2021-09-21 13:15)
DX: D17.1 Benign lipomatous neoplasm of skin and subcutaneous tissue of trunk (principal); E66.9 Obesity, unspecified; Z68.35 Body mass index [BMI] 35.0-35.9, adult
CPT/HCPCS: 21601; 81025; J7120